=== PATIENT | male | born 1945 | race Caucasian/White ===

== ENCOUNTER 2019-10-25 11:22 | Outpatient (CLI) | payer MEDICARE, MEDICAID ==
--- NOTE | 2019-10-25 17:24 | RAD ---
RIGHT ELBOW FOUR VIEWS: 10/25/19 No fracture or joint effusion was seen. No bony abnormality around the medial epicondyle was apprecia miquel. IMPRESSION: No significant finding. POS: HOME
--- NOTE | 2019-10-25 19:08 | RAD ---
LEFT WRIST THREE VIEWS: 10/25/19 No fracture, dislocation, or acute bony change was seen. The carpal relationships seem normal. The in tercarpal joints were unremarkable. Some minimal irregularity of the distal pole of the scaphoid and a bony spur from the dorsal side of one of the carpal bones is probably related to old trauma. There are no dramatic arthritic changes in this wrist. IMPRESSION: No acute finding. POS: HOME
== END 2019-10-25 11:23 | disposition home or self-care (01) ==
LOC: BURRAD 11:22
PROVIDERS: ATTEND Family Medicine
DX: M77.01 Medial epicondylitis, right elbow (principal); M25.532 Pain in left wrist